=== PATIENT | female | born 1965 | race African-American/Black ===

== ENCOUNTER 2017-03-18 11:34 | Emergency (ER) | payer MEDICAID ==
[~2017-03-18] VITALS: Ht 167.6 cm; Wt 73.1 kg
[2017-03-18 11:44] VITALS: BP 149/93
--- NOTE | 2017-03-18 11:49 | NUR ---
PATIENT AMBULATED TO ER BED 7.
--- NOTE | 2017-03-18 11:50 | NUR ---
PATIENT PRESENTS TO ED WITH C/O RIGHT EAR PAIN AND RIGHT SIDED THROAT PAIN X 5 DAYS DENIES PURULENT DRAINAGE FROM EAR; PT STATES SHE HAS DECREASE HEARING ON RT EAR;NO DROOLING NOTED;PT FEELS NAUSEATED BUTVDENIES VOMITTING; SKIN IS PINK/WARM/DRY; AAOX4 WITH EVEN AND STEADY GAIT; LUNGS CLEAR BL; HR EVEN AND REGULAR; PT DENIES ANY FEVER, CP, SOB, OR COUGH AT THIS TIME; PATIENT STATES PAIN OF 8/10 AT THIS TIME;PATIENT POSITIONED FOR COMFORT; HOB ELEVATED; BEDRAILS UP X2; BED DOWN. ER MD MADE AWARE OF PT STATUS.
--- NOTE | 2017-03-18 12:15 | NUR ---
DR WAGGONER AT BEDSIDE.
--- NOTE | 2017-03-18 12:15 | NUR ---
Jayant otero in [facility] - 03/18/17 at 1347 by [email or web address] PATIENT BEING EVALUATED BY DR. WAGGONER.
[2017-03-18] MEDS ORDERED: fentaNYL 0.05 MG/ML VIAL IM ONE (12:30)
[2017-03-18] MEDS ORDERED: HYDROmorphone 1 MG/ML AMP IM ONE (13:20)
[2017-03-18 13:45] VITALS: BP 143/84
--- NOTE | 2017-03-18 13:45 | NUR ---
Patient discharged with v/s stable. Written and verbal after care instructions given and explained. Patient alert, oriented and verbalized understanding of instructions. Ambulatory with steady gait. All questions addressed prior to discharge. ID band removed. Patient advised to follow up with PMD. Rx of TRAMADOLA [place] AMOXICILLIN given. Patient educated on indication of medication including possible reaction and side effects. Opportunity to ask questions provided and answered.
== END 2017-03-18 13:45 | disposition home or self-care (01) ==
LOC: MED 11:34
DX: J02.9 Acute pharyngitis, unspecified (principal); I10 Essential (primary) hypertension; H92.01 Otalgia, right ear; Z88.5 Allergy status to narcotic agent
CPT/HCPCS: 81002; 81025; 96372; 99284; J1170; J3010

== ENCOUNTER 2017-03-20 10:54 | Emergency (ER) | payer MEDICAID ==
[~2017-03-20] VITALS: Ht 162.6 cm; Wt 70.5 kg
[2017-03-20 11:14] VITALS: BP 124/49
--- NOTE | 2017-03-20 11:36 | NUR ---
PATIENT TO BED 3 AT THIS TIME
[2017-03-20] MEDS ORDERED: DEXAMETHASONE 4 MG/ML VIAL PO ONE (11:45)
[2017-03-20] MEDS ORDERED: LIDOCAINE VISCOUS 2% 20 ML UDC PO ONE (11:45)
[2017-03-20] MEDS ORDERED: KETOROLAC 60 MG/2 ML VIAL IM ONE (11:45)
--- NOTE | 2017-03-20 12:09 | NUR ---
51 F BIB SELF C/O INTERMITTENT "THROBBING" 9/10 THROAT PAIN X 2 WKS, PT WAS SEEN HERE ON 03/18/17 FOR HER SORE THROAT BUT IS FEELING WORST AND IS UNABLE TO EAT WELL; PATIENT ABLE TO SWALLOW AND TALKING IN FULL SENTENCES;
--- NOTE | 2017-03-20 12:09 | NUR ---
PATIENT DENIES ANY CP, COUGH AT TIME, ER MD AWARE OF PT STATUS; ALL NEEDS MET AT THIS TIME; WILL CONTINUE TO MONITOR
[2017-03-20 13:10] VITALS: BP 119/70
--- NOTE | 2017-03-20 13:10 | NUR ---
Patient discharged with v/s stable. Written and verbal after care instructions given and explained. Patient alert, oriented and verbalized understanding of instructions. Ambulatory with steady gait. All questions addressed prior to discharge. ID band removed. Patient advised to follow up with PMD. Rx of [place] given. Patient educated on indication of medication including possible reaction and side effects. Opportunity to ask questions provided and answered.
== END 2017-03-20 13:10 | disposition home or self-care (01) ==
LOC: MED 10:54
DX: J02.9 Acute pharyngitis, unspecified (principal); J03.90 Acute tonsillitis, unspecified; Z90.710 Acquired absence of both cervix and uterus; Z88.5 Allergy status to narcotic agent; Z87.891 Personal history of nicotine dependence
CPT/HCPCS: 96372; 99283; J1100; J1885

== ENCOUNTER 2019-03-26 12:38 | Outpatient (CLI) | payer OTHER | END 2019-03-26 20:16 | disposition home or self-care (01) | LOC: MRD 12:38 | PROVIDERS: ATTEND Family Medicine | DX: M75.82 Other shoulder lesions, left shoulder (principal) | CPT/HCPCS: 73030 ==

== ENCOUNTER 2022-09-11 19:26 | Emergency (ER) | payer OTHER ==
[~2022-09-11] VITALS: Ht 162.6 cm; Wt 120.2 kg
[2022-09-11 19:50] VITALS: BP 151/90
--- NOTE | 2022-09-11 19:53 | NUR ---
to lobby a/w bed ambulatory
--- NOTE | 2022-09-11 22:20 | NUR ---
SEEN AND EXAMINED BY JACLYN
[2022-09-11] MEDS ORDERED: IBUP-2213 PO ×2 (22:34→22:50)
[2022-09-11] MEDS ORDERED: DIPH25TA53 PO ×2 (22:34→22:50)
[2022-09-11] MEDS ORDERED: PRED20TA5 PO ×2 (22:34→22:50)
[2022-09-11] MEDS ORDERED: IBUPROFEN 600 MG TAB PO ONE (22:35)
--- NOTE | 2022-09-11 22:48 | NUR ---
Patient discharged with v/s stable. Written and verbal after care instructions given and explained. Patient alert, oriented and verbalized understanding of instructions. Ambulatory with steady gait. All questions addressed prior to discharge. ID band removed. Patient advised to follow up with PMD. Rx of Diphenhydramine HCI and Prednisone given. Opportunity to ask questions provided and answered.
== END 2022-09-11 22:48 | disposition home or self-care (01) ==
LOC: MED 19:26
DX: T78.40XA Allergy, unspecified, initial encounter (principal); R22.1 Localized swelling, mass and lump, neck; R59.1 Generalized enlarged lymph nodes; I10 Essential (primary) hypertension; Z88.5 Allergy status to narcotic agent; Z79.899 Other long term (current) drug therapy; X58.XXXA Exposure to other specified factors, initial encounter
CPT/HCPCS: 99283; Q0163